=== PATIENT | female | born 1965 | race Caucasian/White ===

== ENCOUNTER 2016-12-29 07:05 | Emergency (ER) | payer BC, OTHER ==
[2016-12-29 07:15] VITALS: BP 146/76
--- NOTE | 2016-12-29 07:44 | ERPHSYRPT ---
- History of Present Illness Time Seen by Provider: 12/29/16 07:40 Source: patient Exam Limitations: no limitations Patient Subjective Stated Complaint: pt started getting headaches, sore throat and vomiting. vomiting bright yellow/mucous x2 since this morning. Triage Nursing Assessment: PT WALKED INTO THE ER. SKIN PINK WARM AND DRY. RESPIRATIONS EVEN AND UNLABORED. THROAT RED. Physician History: The patient is a 51-year-old female who complains of a headache, sore throat and vomiting. The headache and sore throat began last night. She had fever and chills last night. He vomited twice this morning. She works in a daycare. She has a past medical history of strep throat and hypothyroidism. She smokes. Timing/Duration: gradual onset Severity: moderate ENT Location: throat Prearrival Treatment: no prearrival treatment Modifying Factors: Improves With: nothing Associated Symptoms: cough, fever, chills, sore throat Allergies/Adverse Reactions: egg Allergy (Verified 12/29/16 07:29) seaweed Adverse Reaction (Uncoded 08/02/15 16:26) Home Medications: Levothyroxine Sodium 25 mcg PO DAILY 08/02/15 [History] Hx Tetanus, Diphtheria Vaccination/Date Given: Yes Hx Influenza Vaccination/Date Given: No Hx Pneumococcal Vaccination/Date Given: No Immunizations Up to Date: Yes - Review of Systems Constitutional: Fever, Chills Eyes: No Symptoms Ears, Nose, & Throat: Throat Pain Respiratory: Cough Cardiac: No Chest Pain, No Edema, No Syncope Abdominal/Gastrointestinal: Nausea, Vomiting Genitourinary Symptoms: No Dysuria Musculoskeletal: No Back Pain, No Neck Pain Skin: No Rash Neurological: No Symptoms Psychological: No Symptoms Endocrine: No Symptoms Hematologic/Lymphatic: No Symptoms Immunological/Allergic: No Symptoms All Other Systems: Reviewed and Negative - Past Medical History Pertinent Past Medical History: Yes Neurological History: No Pertinent History ENT History: No Pertinent History Cardiac History: No Pertinent History Respiratory History: No Pertinent History Endocrine Medical History: Hypothyroidism Musculoskeletal History: No Pertinent History GI Medical History: No Pertinent History History: No Pertinent History Psycho-Social History: No Pertinent History Female Reproductive Disorders: No Pertinent History - Past Surgical History Past Surgical History: Yes Neuro Surgical History: No Pertinent History Cardiac: No Pertinent History Respiratory: No Pertinent History Gastrointestinal: No Pertinent History Genitourinary: No Pertinent History Musculoskeletal: No Pertinent History Female Surgical History: No Pertinent History Other Surgical History: HERNIA. SURGERY ON TOE - Social History Smoking Status: Current every day smoker How long have you smoked: 30 Exposure to second hand smoke: No Drug Use: none Patient Lives Alone: No - Nursing Vital Signs Nursing Vital Signs: Initial Vital Signs Temperature 100.3 F Temperature Source Oral Pulse Rate 106 Respiratory Rate 12 Blood Pressure [Right Arm] 146/76 Pain Intensity 7 - Physical Exam General Appearance: no apparent distress, alert Eye Exam: bilateral eye: PERRL, EOMI Nasal Exam: normal inspection Throat Exam: tonsillar exudate Neck Exam: supple Cardiovascular/Respiratory Exam: normal breath sounds, regular rate/rhythm Abdominal Exam: non-tender, soft Neurologic Exam: alert, oriented x 3, sensation nml, No motor deficits Skin Exam: normal color, warm, dry SpO2 Interpretation: normal SpO2: 96 Oxygen Delivery: Room Air Ordered Tests: Active Orders 24 hr Category Date Time Status STREP SCREEN-BETA A Stat Lab 12/29/16 07:22 Completed Medication Summary Discontinued Medications Generic Name Dose Route Start Last Admin Trade Name Freq PRN Reason Stop Dose Admin Penicillin G Benzathine 1.2 mu 12/29/16 07:47 Bicillin L-A 1.2 Mu/2ml Syringe IM 12/29/16 07:48 STAT ONE Lab/Rad Data: Laboratory Results 12/29/16 Range/Units 07:22 Streptococcus Screen POSITIVE (Negative) - Progress Progress: unchanged - Departure Time of Disposition: 07:48 Departure Disposition: Home Clinical Impression: Strep pharyngitis Condition: Stable Critical Care Time: No Additional Instructions: You have strep pharyngitis. You were given an injection of 1.2 million units of Bicillin LA. You are infectious for 24 hours after receiving the antibiotic. Avoid work and public outings for 24 hours. Take Tylenol and ibuprofen for comfort. Take Zofran 4 mg every 6 hours as needed for vomiting. Prescriptions: Ondansetron [Zofran Odt] 4 mg PO Q6HPRN PRN #10 tab.rapdis PRN Reason: Nausea/Vomiting
[2016-12-29] MEDS ORDERED: Bicillin L-A 1.2 Mu/2ML SYRINGE IM ONE ×2 (07:47→07:48)
[2016-12-29 07:56] VITALS: PULSE 104; O2SAT 97
== END 2016-12-29 08:12 | disposition home or self-care (01) ==
LOC: ED 07:05
DX: J02.0 Streptococcal pharyngitis (principal); R51 Headache; R11.10 Vomiting, unspecified; E03.9 Hypothyroidism, unspecified; R50.9 Fever, unspecified
CPT/HCPCS: 87430; 96372; 99284; J0561

== ENCOUNTER 2025-07-20 16:23 | Emergency (ER) | payer OTHER ==
[2025-07-20 16:40] VITALS: PULSE 86; TEMP 98.1; O2SAT 97
[2025-07-20] MEDS ORDERED: Hydromorphone 1 mg/ml Injection ONE (17:07)
[2025-07-20] MEDS: Hydromorphone 1 mg/ml Injection IM ONE (17:10)
[2025-07-20] MEDS: Lidoderm Patch 5% TOP ONE (17:24)
--- NOTE | 2025-07-20 18:02 | XRAY ---
CLINICAL HISTORY: lumbar radic COMPARISON: None TECHNIQUE: CT non-contrast scan of the lumbar spine was performed. Axial images were obtained with reformatted coronal and sagittal images submitted for interpretation. One of the following dose reduction techniques was utilized for this examination: Automated exposure control, adjustment of the mA and/or kV according to patient size, or use of iterative reconstruction. CTDI: 29.34 mGy, DLP: 920.45 mGy.cm FINDINGS: Vertebrae: Lumbar spine levoscoliosis is present. There is normal alignment of the lumbar vertebrae. There are no fractures, lytic or sclerotic lesions. Bone density is normal without evidence of osteopenia or osteoporosis. Intervertebral Discs: L3-L4 endplate sclerosis with irregularities as well as a vacuum phenomenon are noted. At L2-L3, there are bilateral posterolateral disc bulges, more prominent on the left side, causing moderate left and mild right neural foraminal stenosis. At L3-L4, there is a posterior disc protrusion/osteophyte complex with foraminal extensions, more pronounced on the right side, causing marked right and moderate left neural foraminal stenosis, as well as mild spinal canal stenosis. At L4-L5, there is a diffuse disc bulge with left foraminal protrusion, resulting in moderate to marked left and mild right neural foraminal stenosis, as well as mild spinal canal stenosis. At L5-S1, there is a diffuse disc bulge causing bilateral mild neural foraminal stenosis. Facet Joints: There is bilateral moderate L5-S1 facet joint arthrosis. Soft Tissues: There are mild aortoiliac intimal atherosclerotic calcifications. The paraspinal soft tissues demonstrate a normal appearance. There are no abnormal masses, fluid collections, or signs of inflammation. There are degenerative changes of both sacroiliac joints. IMPRESSION: 1. The lumbar spine demonstrates levoscoliosis. 2. L3?L4: Endplate sclerosis with irregularities and vacuum phenomenon. 3. L2?L3: Bilateral posterolateral disc bulges (more on the left), causing moderate left and mild right neural foraminal stenosis. 4. L3?L4: Posterior disc protrusion/osteophyte complex with foraminal extension (more on the right), resulting in marked right and moderate left neural foraminal stenosis and mild spinal canal stenosis. 5. L4?L5: Diffuse disc bulge with left foraminal protrusion, leading to [id number] left and mild right neural foraminal stenosis, and mild spinal canal stenosis. 6. L5?S1: Diffuse disc bulge causing bilateral mild neural foraminal stenosis. 7. Facet joints: Bilateral moderate arthrosis at the L5?S1 level. 8. Mild aortoiliac intimal atherosclerotic calcifications. Electronically Signed by: Hardik Young MD. (07/20/2025 18:01:10 EST)
--- NOTE | 2025-07-20 18:24 | ERPHSYRPT ---
- History of Present Illness Patient Subjective Stated Complaint: pt c/o of left lower back pain that radiates down her leg for the past 2 days Triage Nursing Assessment: Pt brought to the ER by her , hypertensive, rates pain as 10/10, pulses normal, skin n/w/d, denies chest pain, no difficulty breathing, appears to be in moderate pain, no hx of sciatica Physician History: Back pain and left leg pain, onset of symptoms several weeks but worse over the last 4 days, patient now has severe pain about her left thigh extending to just above her left knee, she also has severe pain in her left gluteus, no previous back surgeries, no incontinence of bowel or bladder, she has difficulty in ambulating due to the amount of pain Timing/Duration: day(s) (4) Method of Injury: unknown Quality: burning, throbbing Back Pain Location: lumbar spine Back Pain Radiation: upper legs Severity of Pain-Max: severe Severity of Pain-Current: severe Modifying Factors: Improves With: nothing Previous symptoms: no prior history Body Map: 1 - severe pain 2 - pain Allergies/Adverse Reactions: egg Allergy (Verified 07/20/25 16:40) seaweed Adverse Reaction (Uncoded 07/20/25 16:40) Home Medications: Levothyroxine Sodium 125 mcg PO DAILY 08/02/15 [History] Meloxicam 15 mg [Meloxicam 15 MG] 15 mg PO DAILY 07/20/25 [History] Hx Tetanus, Diphtheria Vaccination/Date Given: Yes Hx Influenza Vaccination/Date Given: No Hx Pneumococcal Vaccination/Date Given: No Travel Risk - International Travel Have you traveled outside of the country in past 3 weeks: No - Emerging Infectious Disease Are you exhibiting symptoms associated with any current EIDs: No - Past Medical History Pertinent Past Medical History: Yes Neurological History: No Pertinent History ENT History: No Pertinent History Cardiac History: No Pertinent History Respiratory History: No Pertinent History Endocrine Medical History: Hypothyroidism, Other Musculoskeletal History: No Pertinent History GI Medical History: No Pertinent History History: No Pertinent History Psycho-Social History: No Pertinent History Female Reproductive Disorders: No Pertinent History Other Medical History: Lamine's dx - Past Surgical History Past Surgical History: Yes Neuro Surgical History: No Pertinent History Cardiac: No Pertinent History Respiratory: No Pertinent History Gastrointestinal: No Pertinent History Genitourinary: No Pertinent History Musculoskeletal: No Pertinent History Female Surgical History: No Pertinent History Other Surgical History: HERNIA. SURGERY ON TOE - Social History Smoking Status: Former smoker How long have you smoked: 30 Exposure to second hand smoke: No Drug Use: none - Social Determinants of Health Will the patient participate in the screening: Yes Do you worry about a steady place to live?: No Do you have any problems with any of the following?: No known problems In the past 12 months,have you had to go without utilities?: No Transportation Issues: No Has anyone in your support network made you feel unsafe?: No Have you or anyone in your house had to go w/o enough food: No - Nursing Vital Signs Nursing Vital Signs: Initial Vital Signs Temperature 98.1 F 07/20/25 16:33 Pulse Rate 86 07/20/25 16:33 Blood Pressure 128/101 07/20/25 16:33 O2 Sat by Pulse Oximetry 97 07/20/25 16:33 Pain Scale Pain Intensity [Left Lower 10 Back] Pain Intensity 8 - Physical Exam General Appearance: no apparent distress, alert Eye Exam: PERRL/EOMI, eyes nml inspection Neck Exam: normal inspection, non-tender, supple, full range of motion, No meningismus, No midline tenderness Respiratory Exam: normal breath sounds, lungs clear, No respiratory distress Cardiovascular Exam: regular rate/rhythm, normal heart sounds Gastrointestinal Exam: soft, No tenderness, No mass Back Exam: decreased range of motion, muscle spasm, No point tenderness (Left lumbar paraspinal tenderness from L1-5) Extremity Exam: normal inspection, normal range of motion, No calf tenderness, No pedal edema Neurologic Exam: alert, oriented x 3, cooperative, 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, normal mood/affect, nml station & gait, sensation nml, No motor deficits Skin Exam: normal color, warm, dry, No rash SpO2 Interpretation: normal SpO2: 97 Ordered Tests: Active Orders 24 hr Category Date Time Status LUMBAR SPINE W/O [CT] Stat Exams 07/20/25 17:01 Completed Medication Summary Discontinued Medications Generic Name Dose Route Start Last Admin Trade Name Freq PRN Reason Stop Dose Admin Hydromorphone HCl 1 mg 07/20/25 17:01 07/20/25 17:10 Hydromorphone 1 Mg/1ml Inj IM 07/20/25 17:02 1 mg STAT ONE Administration Hydromorphone HCl Confirm 07/20/25 17:07 Hydromorphone 1 Mg/1ml Inj Administered 07/20/25 17:08 Dose 1 mg .ROUTE .STK-MED ONE Lidocaine 1 patch 07/20/25 17:05 07/20/25 17:24 Lidocaine Hcl 1 Patch Patch TOP 07/20/25 17:06 1 patch ONCE ONE Administration - Progress Progress Note: 07/20/25 18:23 Pain medication, Lidoderm patch, CT lumbar spine and revealed degenerative joint disease with lumbar foraminal stenosis at multiple levels, recommend outpatient follow-up to pain management, outpatient physical therapy - Departure Departure Disposition: Home Clinical Impression: Lumbar radiculopathy, acute Condition: Stable Critical Care Time: No Referrals: LISSY CUEVAS NP [Primary Care Provider, [facility]] - Follow up with PCP 1 day Instructions: Radiculopathy of the neck and back (including sciatica) - Discharge instruc Additional Instructions: Ice 10 to 15 minutes 3-4 times a day to the your low back, call your primary care doctor tomorrow for referral to pain management, consider massage, outpatient physical therapy Forms: Work/School Release Form Prescriptions: Lidocaine HCl 5% Patch [Lidoderm Patch 5%] 1 patch TOP DAILY #30 patch Oxycodone HCl/Acetaminophen [Oxycodone-Acetaminophen 5-325] 2 each PO Q6H PRN #24 tablet MDD 4 PRN Reason: Pain
[2025-07-20 18:35] VITALS: BP 108/89
== END 2025-07-20 18:49 | disposition home or self-care (01) ==
LOC: ED 16:23
DX: M54.16 Radiculopathy, lumbar region (principal); M54.50 Low back pain, unspecified; Z79.899 Other long term (current) drug therapy